=== PATIENT | male | born 1965 | race African-American/Black ===

== ENCOUNTER 2018-03-03 21:13 | Emergency (ER) | payer MEDICARE, MEDICAID ==
[2018-03-03 21:51] LABS: #Basophils 0.1 thou/uL (0.0-0.2); #Eosinphils 0.1 thou/uL (0.0-0.7); #Monocytes 0.5 thou/uL (0.11-0.59); #Neutrophils 3.8 thou/uL (1.40-6.50); %Eosinophils 2.1 % (0.0-10.0); %Lymphocytes 30.5 % (21.0-51.0); %Neutrophils 59.3 % (42.0-75.0); Hemoglobin 13.2 g/dL (14.0-18.0); Mean Corpuscular HGB CONC 35.5 g/dL (32.0-36.0); Mean Corpuscular Hemoglobin 33.8 pg (27.0-31.0); Mean Corpuscular Volume 95.4 fL (78.0-98.0); Mean Platelet Volume 5.7 fL (7.4-10.4); Platelet Count 285 thou/uL (130-400); RBC Distribution Width 11.6 % (11.5-14.5); Red Blood Cell (RBC) Count 3.89 mill/uL (4.70-6.10); White Blood Cell (WBC) Count 6.4 thou/uL (4.8-10.8)
[2018-03-03 22:13] LABS: ALT (SGPT) 15 U/L (8-55); AST (SGOT) 16 U/L (5-34); Albumin 4.2 g/dL (3.5-5.0); Alkaline Phosphatase 95 U/L (40-150); Anion Gap 12 mmol/L (10-20); BUN (Urea Nitrogen) 18 mg/dL (8.9-20.6); Bilirubin, Total 0.6 mg/dL (0.2-1.2); Calc. Creatinine Clearance 0 mL/min (70-130); Calcium 9.9 mg/dL (7.8-10.44); Carbon Dioxide 26 mmol/L (22-29); Chloride 105 mmol/L (98-107); Estimated GFR-MDRD 77; Globulin 3.3 g/dL (2.4-3.5); Glucose 108 mg/dL (70-105); Potassium 3.7 mmol/L (3.5-5.1); Protein, Total 7.5 g/dL (6.0-8.3); Sodium 139 mmol/L (136-145)
[2018-03-03 22:19] LABS: CKMB 4.4 ng/mL (0-6.6); Troponin I Less than 0.010 ng/mL (< 0.028)
--- NOTE | 2018-03-03 22:25 | RAD ---
PORTABLE AP CHEST X-RAY: 03/03/18 HISTORY: Right arm tingling. Chest pain. COMPARISON: None available. FINDINGS: The cardiac silhouette and pulmonary vasculature are within normal limits. Lucencies are seen within the right lung apex likely related to bolus emphysematous changes. Lungs are otherwise clear. Osseou s structures are intact. IMPRESSION: 1. No acute cardiopulmonary process. 2. Bullous emphysematous changes right lung apex. POS: [facility]
[2018-03-03 22:27] LABS: Bilirubin Negative (Negative); Blood, Urine Negative (Negative); Clarity CLEAR (Clear); Glucose, Urine (Dipstick) Negative (Negative); Leukocyte Moderate (Negative); Nitrite Negative (Negative); Protein, Urine (Dipstick) Negative (Neg-Trace); Specific Gravity, Urine 1.016 (1.002-1.036)
[2018-03-03 22:29] LABS: Bacteria/HPF None Seen HPF (None Seen); Hyaline Casts/LPF 0-3 HYALINE CAST LPF (0-3 Hyaline); RBC/HPF None Seen HPF (0-3); Squamous Epithelial None Seen HPF (0-3); WBC/HPF 0-3 HPF (0-3)
== END 2018-03-03 23:32 | disposition home or self-care (01) ==
LOC: ERS 21:13
DX: R20.2 Paresthesia of skin (principal); F25.9 Schizoaffective disorder, unspecified; I25.2 Old myocardial infarction; F17.210 Nicotine dependence, cigarettes, uncomplicated
CPT/HCPCS: 36415; 71045; 80053; 81003; 81015; 82553; 84484; 85025; 93005

== ENCOUNTER 2018-04-14 10:08 | Emergency (ER) | payer MEDICARE, MEDICAID ==
[2018-04-14 10:56] LABS: Bilirubin Negative (Negative); Blood, Urine Negative (Negative); Glucose, Urine (Dipstick) Negative (Negative); Leukocyte Negative (Negative); Nitrite Negative (Negative); Protein, Urine (Dipstick) Negative (Neg-Trace); Urobilinogen 0.2 mg/dL (0.2-1.0)
[2018-04-14 10:57] LABS: Clarity Clear (Clear)
[2018-04-14 11:09] LABS: Amphetamine Not Detected (NotDetected); Barbiturates Screen Not Detected (NotDetected); Benzodiazepine Screen Not Detected (NotDetected); Cocaine Metabolite Screen Not Detected (NotDetected); Medtox Control Line Valid? VALID (VALID); Medtox Reader # READER 1; Methadone Not Detected (NotDetected); Methamphetamine Not Detected (NotDetected); Opiate Screen Not Detected (NotDetected); Oxycodone Screen Not Detected (NotDetected); Phencyclidine (PCP) Not Detected (NotDetected); THC/Cannabinoid Screen Detected (NotDetected); Tricyclic Screen Not Detected (NotDetected)
[2018-04-14 11:10] LABS: #Eosinphils 0.1 thou/uL (0.0-0.7); #Lymphocytes 1.1 thou/uL (1.20-3.40); #Monocytes 0.3 thou/uL (0.11-0.59); #Neutrophils 2.4 thou/uL (1.40-6.50); %Basophils 1.1 % (0.0-1.0); %Eosinophils 3.4 % (0.0-10.0); %Lymphocytes 28.2 % (21.0-51.0); %Monocytes 8.3 % (0.0-10.0); Hemoglobin 13.9 g/dL (14.0-18.0); Mean Corpuscular HGB CONC 35.2 g/dL (32.0-36.0); Mean Corpuscular Hemoglobin 33.8 pg (27.0-31.0); Mean Corpuscular Volume 96.1 fL (78.0-98.0); Mean Platelet Volume 5.9 fL (7.4-10.4); Platelet Count 280 thou/uL (130-400); White Blood Cell (WBC) Count 4.1 thou/uL (4.8-10.8)
[2018-04-14 11:33] LABS: ALT (SGPT) 16 U/L (8-55); AST (SGOT) 22 U/L (5-34); Albumin 4.2 g/dL (3.5-5.0); Alkaline Phosphatase 80 U/L (40-150); Anion Gap 13 mmol/L (10-20); BUN (Urea Nitrogen) 25 mg/dL (8.4-25.7); Bilirubin, Total 0.6 mg/dL (0.2-1.2); Calc. Creatinine Clearance 0 mL/min (70-130); Calcium 9.6 mg/dL (7.8-10.44); Carbon Dioxide 23 mmol/L (22-29); Chloride 106 mmol/L (98-107); Dilantin Less than 1.8 ug/mL (10.0-20.0); Estimated GFR-MDRD 72; Globulin 3.3 g/dL (2.4-3.5); Glucose 95 mg/dL (70-105); Potassium 3.8 mmol/L (3.5-5.1); Protein, Total 7.5 g/dL (6.0-8.3); Sodium 138 mmol/L (136-145)
== END 2018-04-14 12:21 | disposition home or self-care (01) ==
LOC: ERS 10:08
DX: R56.9 Unspecified convulsions (principal); I25.2 Old myocardial infarction; F17.210 Nicotine dependence, cigarettes, uncomplicated; F25.9 Schizoaffective disorder, unspecified
CPT/HCPCS: 36415; 80053; 80185; 80306; 81003; 84146; 85025; 94760

== ENCOUNTER 2018-07-02 09:00 | Emergency (ER) | payer MEDICARE, MEDICAID | END 2018-07-02 10:11 | disposition home or self-care (01) | LOC: ERS 09:00 | DX: J06.9 Acute upper respiratory infection, unspecified (principal); M19.90 Unspecified osteoarthritis, unspecified site; I25.2 Old myocardial infarction; F25.9 Schizoaffective disorder, unspecified; F17.210 Nicotine dependence, cigarettes, uncomplicated; Z79.899 Other long term (current) drug therapy | CPT/HCPCS: 87804; 99283 ==

== ENCOUNTER 2018-09-10 10:38 | Emergency (ER) | payer MEDICARE, MEDICAID ==
[2018-09-10] MEDS ORDERED: Ketorolac Tromethamine 30 MG/ML VIAL ONE (12:08)
--- NOTE | 2018-09-10 12:25 | RAD ---
RIGHT HIP 2 VIEWS: HISTORY: Right hip pain. FINDINGS: Complete loss of joint space with prominent subcortical cyst formation. Moderate osteophytosis and s ubchondral sclerosis. Mild irregularity of the articular surface of the femoral head. No acute frac ture or dislocation. Calcification over the arterial structures. IMPRESSION: Severe osteoarthritic changes right hip. POS: [facility]
== END 2018-09-10 13:14 | disposition home or self-care (01) ==
LOC: ERS 10:38
DX: M16.11 Unilateral primary osteoarthritis, right hip (principal); M70.61 Trochanteric bursitis, right hip; I25.2 Old myocardial infarction; F25.9 Schizoaffective disorder, unspecified; F17.210 Nicotine dependence, cigarettes, uncomplicated; Z79.899 Other long term (current) drug therapy
CPT/HCPCS: 96372; J1885

== ENCOUNTER 2019-02-04 20:10 | Emergency (ER) | payer MEDICARE, MEDICAID | END 2019-02-04 21:00 | disposition home or self-care (01) | LOC: ERS 20:10 | DX: G40.909 Epilepsy, unspecified, not intractable, without status epilepticus (principal); M16.11 Unilateral primary osteoarthritis, right hip; F25.9 Schizoaffective disorder, unspecified; F17.210 Nicotine dependence, cigarettes, uncomplicated; Z79.899 Other long term (current) drug therapy | CPT/HCPCS: 99283 ==

== ENCOUNTER 2019-03-08 19:25 | Emergency (ER) | payer MEDICARE, MEDICAID | END 2019-03-08 19:50 | LOC: EEVIPCON 19:25 → ERS 19:25 | DX: R56.9 Unspecified convulsions (principal); I25.2 Old myocardial infarction; M19.90 Unspecified osteoarthritis, unspecified site; F25.9 Schizoaffective disorder, unspecified; F17.210 Nicotine dependence, cigarettes, uncomplicated | CPT/HCPCS: 99284 ==

== ENCOUNTER 2019-03-09 21:04 | Emergency (ER) | payer MEDICAID, MEDICARE, OTHER ==
[2019-03-09] MEDS ORDERED: levETIRAcetam 500 MG TAB PO SCH (21:15)
[2019-03-09] MEDS ORDERED: Acetaminophen 500 MG TAB ONE (21:24)
== END 2019-03-09 22:05 | disposition home or self-care (01) ==
LOC: EEVIPCON 21:04 → ERS 21:04
DX: R56.9 Unspecified convulsions (principal); I25.2 Old myocardial infarction; M19.90 Unspecified osteoarthritis, unspecified site; F25.9 Schizoaffective disorder, unspecified; F17.210 Nicotine dependence, cigarettes, uncomplicated
CPT/HCPCS: 99284

== ENCOUNTER 2019-03-17 22:39 | Emergency (ER) | payer MEDICAID, MEDICARE, OTHER ==
[2019-03-17 23:35] LABS: #Basophils 0.1 thou/uL (0.0-0.2); #Eosinphils 0.1 thou/uL (0.0-0.7); #Lymphocytes 1.9 thou/uL (1.20-3.40); #Monocytes 0.4 thou/uL (0.11-0.59); #Neutrophils 2.3 thou/uL (1.40-6.50); %Eosinophils 2.2 % (0.0-10.0); %Lymphocytes 39.9 % (21.0-51.0); %Monocytes 7.7 % (0.0-10.0); %Neutrophils 48.3 % (42.0-75.0); Hemoglobin 13.7 g/dL (14.0-18.0); Mean Corpuscular Hemoglobin 33.4 pg (27.0-31.0); Mean Corpuscular Volume 95.2 fL (78.0-98.0); Mean Platelet Volume 5.9 fL (7.4-10.4); Platelet Count 238 thou/uL (130-400); Red Blood Cell (RBC) Count 4.11 mill/uL (4.70-6.10); White Blood Cell (WBC) Count 4.7 thou/uL (4.8-10.8)
[2019-03-17 23:55] LABS: ALT (SGPT) 12 U/L (8-55); AST (SGOT) 16 U/L (5-34); Albumin 4.1 g/dL (3.5-5.0); Alkaline Phosphatase 74 U/L (40-150); Anion Gap 12 mmol/L (10-20); BUN (Urea Nitrogen) 19 mg/dL (8.4-25.7); Calc. Creatinine Clearance 0 mL/min (70-130); Calcium 9.8 mg/dL (7.8-10.44); Carbon Dioxide 27 mmol/L (22-29); Chloride 103 mmol/L (98-107); Estimated GFR-MDRD Greater than 90; Globulin 3.1 g/dL (2.4-3.5); Glucose 93 mg/dL (70-105); Potassium 3.7 mmol/L (3.5-5.1); Protein, Total 7.2 g/dL (6.0-8.3); Sodium 138 mmol/L (136-145)
[2019-03-18] MEDS ORDERED: levETIRAcetam 500 MG TAB PO SCH (00:30)
[2019-03-18] MEDS ORDERED: Acetaminophen 500 MG TAB ONE (00:32)
== END 2019-03-18 00:53 ==
LOC: EEVIPCON 22:39 → ERS 22:39
DX: R56.9 Unspecified convulsions (principal); I25.2 Old myocardial infarction; M19.90 Unspecified osteoarthritis, unspecified site; F25.9 Schizoaffective disorder, unspecified; F17.210 Nicotine dependence, cigarettes, uncomplicated; Z79.899 Other long term (current) drug therapy
CPT/HCPCS: 36415; 80053; 80177; 85025; 99284

== ENCOUNTER 2019-04-24 10:21 | Emergency (ER) | payer MEDICARE, MEDICAID | END 2019-04-24 11:49 | disposition home or self-care (01) | LOC: ERS 10:21 | DX: R20.2 Paresthesia of skin (principal); M19.90 Unspecified osteoarthritis, unspecified site; F25.9 Schizoaffective disorder, unspecified; F17.210 Nicotine dependence, cigarettes, uncomplicated; Z79.899 Other long term (current) drug therapy; I25.2 Old myocardial infarction | CPT/HCPCS: 36416; 93005 ==

== ENCOUNTER 2020-07-06 13:14 | Emergency (ER) | payer MEDICARE, OTHER ==
--- NOTE | 2020-07-06 14:29 | RAD ---
LEFT KNEE 4 VIEWS: Date: 07/06/2020 HISTORY: Pain. COMPARISON: None. FINDINGS: There is severe medial compartment degenerative change. Moderate reactive joint effusion. Moderate la teral and patellofemoral compartment degenerative changes. Moderate vascular calcifications. IMPRESSION: Moderate to severe medial compartment and moderate lateral patellofemoral compartment degenerative ch anges. No acute fracture or malalignment. POS: [facility]
--- NOTE | 2020-07-06 16:26 | CT ---
CT PELVIS WITH IV CONTRAST: Date: 07/06/2020 INDICATION: Evaluation of perineal rash. FINDINGS: The visualized bowel loops are unremarkable. The urinary bladder is distended. Prostate mildly promin ent. Osseous windows show severe osteoarthritic changes involving the right hip. Prominent spurring and laura int narrowing at the right hip with very pronounced subchondral cystic changes on both sides of the h ip joint. Asymmetric musculature on the left with asymmetrically enlarged left piriformis muscle and left hip m uscles suggesting changes in gait due to the severe right hip arthrosis. No evidence of perirectal abscess or fluid collection. Nonspecific subcutaneous haziness seen in the gluteal folds at the perineum may relate to the describ ed rash. There is no evidence of subcutaneous abscess. IMPRESSION: 1. No evidence of acute process. 2. Nonspecific subcutaneous haziness in the gluteal folds at the perineum. 3. Severe osteoarthritic changes of right hip. 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 POS: [facility]
== END 2020-07-06 16:35 | disposition home or self-care (01) ==
LOC: ERS 13:14
DX: R21 Rash and other nonspecific skin eruption (principal); M25.562 Pain in left knee; I25.2 Old myocardial infarction; M19.90 Unspecified osteoarthritis, unspecified site; F25.9 Schizoaffective disorder, unspecified; F17.210 Nicotine dependence, cigarettes, uncomplicated; X50.1XXA Overexertion from prolonged static or awkward postures, initial encounter
CPT/HCPCS: 72193

== ENCOUNTER 2020-09-15 10:40 | Emergency (ER) | payer MEDICARE, MEDICAID ==
[2020-09-15] MEDS ORDERED: Ketorolac Tromethamine 30 MG/ML VIAL ONE (11:56)
== END 2020-09-15 12:25 | disposition home or self-care (01) ==
LOC: ERS 10:40
DX: M54.5 Low back pain (principal); I25.2 Old myocardial infarction; F17.210 Nicotine dependence, cigarettes, uncomplicated; V18.0XXA Pedal cycle driver injured in noncollision transport accident in nontraffic accident, initial encounter
CPT/HCPCS: 96372; 99281; J1885

== ENCOUNTER 2020-12-21 20:44 | Emergency (ER) | payer MEDICARE, MEDICAID ==
[2020-12-21] MEDS ORDERED: Boostrix 0.5 ML (Tdap) VIAL ONE (21:32)
== END 2020-12-21 21:50 | disposition home or self-care (01) ==
LOC: ERS 20:44
DX: S51.811A Laceration without foreign body of right forearm, initial encounter (principal); S60.222A Contusion of left hand, initial encounter; I25.2 Old myocardial infarction; M19.90 Unspecified osteoarthritis, unspecified site; F17.210 Nicotine dependence, cigarettes, uncomplicated; Z79.899 Other long term (current) drug therapy; Z23 Encounter for immunization; Y04.8XXA Assault by other bodily force, initial encounter
CPT/HCPCS: 90471; 90715